=== PATIENT | male | born 1980 | race Caucasian/White ===

== ENCOUNTER 2023-07-13 17:26 | Emergency (ER) | payer OTHER, SELFPAY ==
--- NOTE | 2023-07-13 17:37 | XRR_ITS ---
PROCEDURE INFORMATION: Exam: XR Chest Exam date and time: 07/13/2023 5:38 PM Age: 42 years old Clinical indication: Chest wall pain; Additional info: Cp TECHNIQUE: Imaging protocol: Radiologic exam of the chest. Views: 1 view. COMPARISON: No relevant prior studies available. FINDINGS: Lungs: Unremarkable. No consolidation. Pleural spaces: Unremarkable. No pleural effusion. No pneumothorax. Heart/Mediastinum: Unremarkable. No cardiomegaly. Bones/joints: Unremarkable. XR/XR chest 1V portable [id number] IMPRESSION: No acute findings.
--- NOTE | 2023-07-13 17:37 | ECG_ITS ---
[facility] Test Date: 2023-07-13 Pat Name: Srinath Santana Department: Room: Gender: Male Anesthetist: : 1980 Requested By: Martha Mendez Order Number: [id number] Eddy MD: Bennett Garces M.D. Measurements Intervals [place] Rate: 122 P: 56 LA: 178 QRS: 39 QRSD: 93 T: 39 QT: 417 QTc: 595 Interpretive Statements SINUS TACHYCARDIA ABNORMAL RHYTHM ECG No previous ECG available for comparison Electronically Signed On 07-14-2023 0:44:43 PRESSURISED CONTAINER FILLER by Bennett Garces M.D. [id number]
[2023-07-13 17:43] VITALS: BP 163/105; PULSE 118; RESP 18; TEMP 37; O2SAT 96
--- NOTE | 2023-07-13 17:51 | W.ED.GENADLT ---
HPI - General Adult General: Chief complaint: General Medical Stated complaint: Chest Pains Time Seen by Provider: 07/13/23 17:49 History of Present Illness: 42-year-old male patient comes in with chest discomfort, dizziness, and numbness and tingling in the hands and feet. Patient is reports symptoms on and off for the last week. Patient does not use any alcohol or tobacco at this time. Patient has had a history of alcohol use disorder but does no longer use alcohol. Patient does eat about 100 units of THC per Gummies a day. Patient also drinks caffeinated beverages. Patient denies any other routine medications or supplements. Patient does endorse a lot of stress. Patient's family has a paternal heart disease history, mother is healthy. Associated symptoms: Reports chest pain and malaise; Deny dyspnea, nausea, rash or vomiting Review of Systems General: Reports: 10 or more systems reviewed and unremarkable except in HPI and below Const: Reports: malaise Card: Reports: chest pain Resp: Denies: dyspnea GI: Denies: nausea, vomiting, diarrhea or constipation Skin/Breast: Denies: rash Neuro: Reports: numbness in extremities and dizziness Psych: Reports: anxiety Physical Exam Const: COMMON NORMALS: alert HENMT: COMMON NORMALS: normocephalic HEAD & SCALP: normocephalic MOUTH: Normal oral and palatal mucosa present Neck/C-Spine: COMMON NORMALS: full ROM Resp: COMMON NORMALS: normal respiratory effort and clear to auscultation bilaterally AUSCULTATION: clear to auscultation bilaterally Cardio: COMMON NORMALS: regular rate and regular rhythm RATE: regular rate RHYTHM: regular rhythm GI: COMMON NORMALS: Soft to palpation AUSCULTATION: Yes normoactive bowel sounds PALPATION: Yes Soft to palpation Back/Pelvis: COMMON NORMALS: thoracic and lumbar spine normal to inspection Extremity: COMMON NORMALS: normal to inspection Neuro: SENSORIUM/ORIENTATION: Yes alert Skin: COMMON NORMALS: turgor normal GENERAL SKIN EXAM: turgor normal Course Vital Signs: Vital signs: Vital Signs Temperature 98.6 F 07/13/23 17:43 Pulse Rate 118 H 07/13/23 17:43 Respiratory Rate 18 07/13/23 17:43 Blood Pressure 163/105 07/13/23 17:43 Pulse Oximetry 96 07/13/23 17:43 Oxygen Delivery Me thod Room Air 07/13/23 17:43 MDM - General Adult Medical Decision Making 42-year-old male patient comes in today for complaints of anxiety, chest discomfort, dizziness, tingling in hands and feet. Patient does report significant amount of stress at this time. On exam respirations are even lungs are clear to auscultation. Abdomen soft nontender. No edema is noted. Differential diagnosis includes not limited to panic disorder, generalized anxiety disorder, cannabinoid use disorder, unlikely ACS. Laboratory values were unremarkable except for some decrease in potassium at 3.3. EKG showed no significant changes or abnormalities except some tachycardia. Reviewed exam with patient and family with recommendations for need for treatment follow-up with primary care and need for healthy diet and activity. Patient stated understanding and agreed to plan. Lab Data 07/13/23 18:03 07/13/23 18:03 Radiology Impressions Chest X-Ray 07/13/23 17:37 IMPRESSION: No acute findings. Laboratory Results WBC 8.53 10^3/uL (3.29-11.43) 07/13/23 18:03 RBC 4.80 10^6/uL (3.85-5.65) 07/13/23 18:03 Hgb 14.50 g/dL (11.27-16.99) 07/13/23 18:03 Hct 42.9 % (37-53) 07/13/23 18:03 MCV 89.4 fl (82-101) 07/13/23 18:03 MCH 30.2 pg (27-33) 07/13/23 18:03 MCHC 33.8 g/dL (30-55) 07/13/23 18:03 RDW 12.1 % (12.1-15.1) 07/13/23 18:03 Plt Count 237 10^3/cmm (157-399) 07/13/23 18:03 MPV 9.5 fL (7.4-10.4) 07/13/23 18:03 Neut % (Auto) 62.0 % 07/13/23 18:03 Lymph % (Auto) 28.6 % 07/13/23 18:03 [place] % (Auto) 7.2 % 07/13/23 18:03 Eos % (Auto) 1.6 % 07/13/23 18:03 Baso % (Auto) 0.4 % 07/13/23 18:03 Neut # (Auto) 5.29 10^3/uL (1.8-7.7) 07/13/23 18:03 Lymph # (Auto) 2.4 10^3/uL (0.8-4.8) 07/13/23 18:03 [place] # (Auto) 0.6 10^3/uL (0.2-0.9) 07/13/23 18:03 Eos # (Auto) 0.1 10^3/uL (0.0-0.8) 07/13/23 18:03 Baso # (Auto) 0.0 10^3/uL (0.0-0.1) 07/13/23 18:03 Nucleated RBC % (auto) 0 % 07/13/23 18:03 Nucleated RBCs # 0.0 /100WBC 07/13/23 18:03 PT 12.00 SECONDS (12.1-14.9) L 07/13/23 18:03 INR 0.86 (0.8-1.2) 07/13/23 18:03 Sodium 140 mmol/L (136-145) 07/13/23 18:03 Potassium 3.3 mmol/L (3.5-5.1) L 07/13/23 18:03 Chloride 104 mmol/L (98-107) 07/13/23 18:03 Carbon Dioxide 24 mmol/L (22-29) 07/13/23 18:03 Anion Gap 15.3 (5-19) 07/13/23 18:03 BUN 13 mg/dL (6-20) 07/13/23 18:03 Creatinine 1.0 mg/dL (0.7-1.2) 07/13/23 18:03 GFR Calculation 82.8 mL/min (90-130) L 07/13/23 18:03 Glucose 149 mg/dL (65-115) H 07/13/23 18:03 Calculated Osmolality 293 mOsm/kg (285-295) 07/13/23 18:03 Calcium 9.4 mg/dL (8.5-10.5) 07/13/23 18:03 Total Bilirubin 0.3 mg/dL (0.15-1.2) 07/13/23 18:03 AST 26 U/L (0-40) 07/13/23 18:03 ALT 49 U/L (0-41) H 07/13/23 18:03 Alkaline Phosphatase 72 U/L (40-130) 07/13/23 18:03 Troponin T Baseline 7 ng/L (0-15) 07/13/23 18:03 Total Protein 6.9 g/dL (6.6-8.7) 07/13/23 18:03 Albumin 4.4 g/dL (3.5-5.2) 07/13/23 18:03 Globulin 2.5 g/dL (1.3-4.6) 07/13/23 18:03 All radiology interpretation(s) finalized by discharge EKG Data EKG 1: EKG interpretation date: 07/13/23 EKG interpretation time: 17:40 Prior EKG tracings: not available for review Interpretation: EKG shows a sinus tachycardia with a regular rate of [address] elevation is noted. No ectopy otherwise is noted. No prior exam was available for comparison. Computer generated interpretation: Chest X-Ray 07/13/23 17:37 IMPRESSION: No acute findings. Sinus tachycardia, abnormal rhythm EKG, interpretation based on default age of 42, unconfirmed report. Discharge Plan Discharge Patient Disposition: Home Clinical Impression: Chest pain in adult, Anxiety, Hypokalemia Condition: Stable Discharge Orders: Discharge ED (Routine); Ordered 07/13/23 Ordered By: Stefan Winston Discharge Diet: Usual diet Discharge Activity: Increase activity as tolerated Patient Instructions: Hypokalemia (ED) Activity Restrictions/Additional Instructions: Home and rest. Drink plenty of water and fluids. Eat a healthy diet with plenty of fresh fruits and vegetables and lean fresh meat. Avoid processed foods is much as possible. The more processed food is some more sugars and salts are in. Follow-up with primary care in 1 week for recheck. Return to ED for worsening symptoms such as high fever, increasing shortness of breath, or severe chest pain. Coding Level of Care Code ED [employer] Worker for Edu Dorantes
[2023-07-13 18:13] LABS: Basophils % 0.4 %; Eosinophils # 0.1 10^3/uL (0.0-0.8); Eosinophils % 1.6 %; Hematocrit 42.9 % (37-53); Lymphocytes # 2.4 10^3/uL (0.8-4.8); Lymphocytes % 28.6 %; Mean Corpuscular HGB Conc 33.8 g/dL (30-55); Mean Corpuscular Hemoglobin 30.2 pg (27-33); Mean Corpuscular Volume 89.4 fl (82-101); Mean Platelet Volume 9.5 fL (7.4-10.4); Monocytes # 0.6 10^3/uL (0.2-0.9); Monocytes % 7.2 %; Neutrophils # 5.29 10^3/uL (1.8-7.7); Nucleated Red Blood Cells % 0 %; Platelet Count 237 10^3/cmm (157-399); Red Cell Distribution Width 12.1 % (12.1-15.1); White Blood Count 8.53 10^3/uL (3.29-11.43)
[2023-07-13] MEDS: LORazepam 0.5 mg Tablet PO (18:21)
[2023-07-13 18:32] LABS: Alanine Aminotransferase 49 U/L (0-41); Albumin Level 4.4 g/dL (3.5-5.2); Alkaline Phosphatase 72 U/L (40-130); Anion Gap 15.3 (5-19); Aspartate Amino Transferase 26 U/L (0-40); Blood Urea Nitrogen 13 mg/dL (6-20); Calcium 9.4 mg/dL (8.5-10.5); Carbon Dioxide 24 mmol/L (22-29); Chloride 104 mmol/L (98-107); Globulin 2.5 g/dL (1.3-4.6); Glomerular Filtration Rate 82.8 mL/min (90-130); Glucose 149 mg/dL (65-115); Osmolality Calculated 293 mOsm/kg (285-295); Potassium 3.3 mmol/L (3.5-5.1); Sodium 140 mmol/L (136-145); Total Bilirubin 0.3 mg/dL (0.15-1.2); Total Protein 6.9 g/dL (6.6-8.7); Troponin(5th) Baseline 7 ng/L (0-15)
[2023-07-13 18:38] LABS: INR 0.86 (0.8-1.2)
[2023-07-13] MEDS: potassium chloride ER 20 mEq Tablet 40 MEQ PO (18:51)
== END 2023-07-13 19:03 | disposition home or self-care (01) ==
PROVIDERS: Emergency Medicine; Emergency Provider Nurse Practitioner Family
DX: R07.9 Chest pain, unspecified (principal); F41.9 Anxiety disorder, unspecified; E87.6 Hypokalemia
CPT/HCPCS: 36415; 71045; 80053; 84484; 85025; 85610; 93005; 99285